=== PATIENT | male | born 1990 | race Caucasian/White ===

== ENCOUNTER 2017-08-21 22:30 | Observation (INO) ==
--- NOTE | 2017-08-21 23:47 | Emergency Department Note ---
Disposition Clinical Impression: Cellulitis of left buttock Disposition: Admitted As Inpatient Condition: Good Forms: ED Satisfaction Letter Time of Disposition: 00:59 Skin/Abscess/FB HPI Chief complaint: ED Skin/Abscess/Foreign Body Stated complaint: had injection in hip and having a reaction Time Seen by Provider: 08/21/17 23:33 Source: patient Mode of arrival: ambulatory Limitations: no limitations Nursing Notes Reviewed: Yes Vital Signs Reviewed: Yes HPI Narrative: 27-year-old male presents emergency room for left buttock pain. States he received a Vivitrol shot and his left buttock 2 weeks ago. He states over the course of 2 weeks as gotten very red and swollen and very tender to touch. He denies any problems going to the bathroom. He denies any fevers or chills. States the pain has gotten worsen and has noticed increased swelling and redness to the skin. No other complaints at this time. Home Medications Medication Instructions Recorded Confirmed Dextroamphetamine/Amphetamine 30 mg PO BID 08/05/15 08/05/15 [Adderall 30 mg Tablet] Previous Rx's Medication Instructions Recorded Cyclobenzaprine [Flexeril] 10 mg PO TID #30 tablet 08/05/15 Ibuprofen [Motrin] 800 mg PO Q8HR #30 tablet 08/05/15 Allergies Allergy/AdvReac Type Severity Reaction Status Date / Time No Known Allergies Allergy Verified 08/05/15 17:05 All systems ED: reviewed and negative except as stated. Constitutional: Reports: as per HPI, chills Eyes: Reports: as per HPI ENT ED: Reports: as per HPI Cardiovascular: Reports: as per HPI Respiratory: Reports: as per HPI Gastrointestinal: Reports: as per HPI Genitourinary: Reports: as per HPI Musculoskeletal: Reports: as per HPI Integumentary: Reports: other (Left buttock pain and redness) Neurological: Reports: as per HPI Psychiatric: Reports: as per HPI Endocrine: Reports: as per HPI Hematological/Lymphatic: Reports: as per HPI Allergic/Immunologic: Reports: as per HPI Past Medical History - Past Medical History Medical history: Reports: no medical history Psychiatric history: Reports: ADHD - Social History Smoking Status: Never smoker Smokeless Tobacco Status: No Alcohol use: Reports: occasionally Drug use: Reports: none Physical Exam - General Limitations: no limitations General appearance: alert, in no apparent distress - Head Head exam: atraumatic, normocephalic - Eye Eye exam: Present: normal appearance - ENT ENT exam: normal exam - Neck Neck exam: Present: normal inspection - Chest Chest inspection: Present: normal inspection - Respiratory Respiratory exam: Present: normal lung sounds bilaterally. Absent: respiratory distress, accessory muscle use - Cardiovascular Cardiovascular exam: Present: regular rate, normal rhythm - Abdominal Exam Abdominal exam: Present: soft, Non-Tender, normal bowel sounds - Extremities Exam Extremities exam: Present: normal inspection - Back Exam Back exam: Present: normal inspection - Neurological Exam Neurological exam: Present: alert, oriented X3 - Psychiatric Psychiatric exam: Present: normal affect, normal mood - Skin Skin exam: Present: warm, dry, intact, other (Patient has a 5" x 3" area of significant induration involving the left buttocks. There is no area of fluctuance. It does not extend down into the rectal area) Course - Consultations Consultation #1: with dr gimenez with gen surg see in consult Vital Signs Temperature 97.9 F 08/21/17 22:31 Pulse Rate 81 08/21/17 22:31 Respiratory Rate 16 08/21/17 22:31 Blood Pressure 153/85 08/21/17 22:31 O2 Sat by Pulse Oximetry 97 08/21/17 22:31 Temperature 97.9 F 08/21/17 22:31 Pulse Rate 81 08/21/17 22:31 Respiratory Rate 16 08/21/17 22:31 Blood Pressure 153/85 08/21/17 22:31 O2 Sat by Pulse Oximetry 97 08/21/17 22:31 Oxygen Delivery Oxygen Delivery Room Air Skin/Abscess/Foreign Body - MDM Narrative Medical decision making narrative: I feel based on the size of the induration I feel the patient needs to be admitted for IV antibiotics. consulted [facility] gen surg dr gimenez admit - Medical Records Medical records reviewed: Yes I reviewed the patient's medical records. - Lab Data Lab results reviewed: Yes I reviewed the patient's lab results. Result diagrams: 08/21/17 23:59 Lab Results 08/21/17 Range/Units 23:59 WBC 6.9 (4.3-11.1) K/mcL RBC 4.66 (4.19-5.50) M/mcL Hgb 14.0 (12.9-16.9) g/dL Hct 40.1 (37.5-50.1) % MCV 86.1 (83.0-100.0) fL MCH 30.0 (28.0-33.3) pg MCHC 34.9 (31.6-35.5) g/dL RDW 12.7 (11.5-14.5) % Plt Count 283 (140-400) K/mcL MPV 10.0 (9.4-12.4) fL Immature Gran % 0.1 (0-4) % Seg Neutrophils % 53.4 % Lymphocytes % 32.2 % Monocytes % 9.9 % Eosinophils % 3.8 % Basophils % 0.6 % Neutrophils # 3.7 (1.6-8.9) K/mcL Lymphocytes # 2.2 (0.6-4.6) K/mcL Monocytes # 0.7 (0.0-1.3) K/mcL Eosinophils # 0.3 (0.0-0.6) K/mcL Basophils # 0.0 (0.0-0.2) K/mcL - Radiology Data Radiology results reviewed: Yes I reviewed the patient's radiology results.
[2017-08-22 00:51] LABS: Basophils % 0.6 %; Eosinophils # 0.3 K/mcL (0.0-0.6); Eosinophils % 3.8 %; Hematocrit 40.1 % (37.5-50.1); Immature Granulocytes % 0.1 % (0-4); Lymphocytes # 2.2 K/mcL (0.6-4.6); Lymphocytes % 32.2 %; Mean Corpuscular HGB Conc 34.9 g/dL (31.6-35.5); Mean Corpuscular Volume 86.1 fL (83.0-100.0); Monocytes # 0.7 K/mcL (0.0-1.3); Monocytes % 9.9 %; Neutrophils # 3.7 K/mcL (1.6-8.9); Platelet Count 283 K/mcL (140-400); Red Blood Count 4.66 M/mcL (4.19-5.50); Red Cell Distribution Width 12.7 % (11.5-14.5); Segmented Neutrophils % 53.4 %
[2017-08-22 01:20] LABS: BUN/Creatinine Ratio 12 (6-26); Blood Urea Nitrogen 17 mg/dL (6-20); Calcium 9.7 mg/dL (8.6-10.3); Carbon Dioxide 22 mEq/L (23-29); Chloride 105 mEq/L (98-107); Glucose 87 mg/dL (70-105); Osmolality,Calculated 287 (280-300); Potassium 3.8 mEq/L (3.5-5.1); Sodium 138 mEq/L (136-145); eGFR For African Americans > 60 (> 60); eGFR For Non-African Americans > 60 (> 60)
[2017-08-22] MEDS ORDERED: Acetaminophen 325 MG TABLET PO PRN (01:38)
[2017-08-22] MEDS ORDERED: Naloxone 0.4 MG/ML INJ IVP PRN (01:38)
--- NOTE | 2017-08-22 01:51 | Internal Med History&Physical ---
<Eh Acharya - Last Filed: 08/22/17 02:58> Date of Encounter: 08/22/17 Time of Encounter: 01:44 Assessment and Plan (1) Cellulitis of left buttock Current visit: Yes Status: Acute Cellulitis of left buttock without evidence of systemic infection, causative organism unknown The patient has significant edema and induration in this area, along with hyperemia CT Pelvis shows: Left gluteal skin thickening with underlying inflammatory fat stranding. Blood cultures pending, Got IV Vancomycin in the ED We will treat the patient with IV Rocephin and Vancomycin Control pain with tylenol, avoid NSAIDs due to RAS (2) Acute kidney injury Current visit: Yes Status: Suspected Elevated serum creatinine with normal GFR, without prior labs to compare The patient admits to frequent use of high dose NSAIDs It is possible that he is experiencing RAS in this setting We will hydrate the patient, avoid nephrotoxic agents and repeat BMP in the morning (3) DVT prophylaxis Current visit: Yes Status: Acute Patient is ambulatory, should walk several times a day as possible. Internal Medicine - H&P: HPI Chief complaint: Left buttock abscess Admitted From: Emergency Dept Plans for Post Hospital Care: Home History of present illness: Mr. Mcmahan is a 27 year old male with history of opioid abuse s/p vivitrol shot , chronic joint pain who presents to the ED with left buttock lesion following vivitrol shot two weeks ago. He says that he had the show and noticed an immediate soreness, redness, and hardening of the deeper tissue, however he noticed significantly worsening symptoms about 4 days ago. He said that the area became increasingly red and painful over the past 4 days, and started to become very warm to the touch. He rates the pain at 6/10, and says that it is getting worse. The pain does not radiate. He does take 800mg Ibuprofen daily for chronic joint pain which he says has been minimally effective at controlling pain. He denies fever, chills, sweats, n/v. He has had no GI/ symptoms. He has no other acute complaints. While the patient says that he has used opioid pain medication, he denies use of IV drugs. He has not had alcohol for 28 days, and has not used narcotic pain medication in over one month. Past Med Surg Social Fam HX - Past Medical History Medical history: no medical history Psychiatric history: ADHD - Social History Smoking Status: Never smoker Smokeless Tobacco Status: No Alcohol use: occasionally Drug use: none Internal Medicine - H&P: Meds Atomoxetine [Strattera] 40 mg PO DAILY 08/22/17 [History] Ibuprofen [Motrin] 800 mg PO Q8HR PRN 08/22/17 [History] 3 Allergy/AdvReac Type Severity Reaction Status Date / Time No Known Allergies Allergy Verified 08/05/15 17:05 All Systems PM: A 10-system review of systems was performed and is negative for pertinent findings except as documented above in the HPI. Review of systems: Constitutional: Denies fevers, chills, weight loss, generalized fatigue Head/Neck: Denies neck stiffness. Admits to mild headache which began today. EENT: Denies vision changes/blurriness, rhinorrhea, congestion, sore throat CVS: Denies chest pain, palpitations, THAO, orthopnea, edema, PND Pulm: Denies SOB, cough, sputum, hemoptysis, wheezing GI: Denies abdominal pain, nausea, vomiting, diarrhea, constipation, melena, hematemasis : Denies dysuria, increased frequency, urgency, hematuria Heme: Denies ease of bleeding or bruising Skin: Admits to resident, hardened, painful scan on the left buttock Neuro: Denies paresthesias, focal deficits, ataxia - Constitutional Vitals: Temp Pulse Resp BP Pulse Ox 97.9 F 64 16 121/84 98 08/21/17 22:31 08/22/17 01:09 08/22/17 01:09 08/22/17 01:09 08/22/17 01:09 Exam: Gen.: Vitals noted. No acute distress. AAOx3 HEENT: Normocephalic, atraumatic Neck: Supple. No adenopathy. Cardiac: RRR, no murmur, +S1/S2 Pulmonary: CTA bilaterally, no wheezes, rales or rhonchi, equal chest expansion Abdomen: soft, nontender, BS noted, no guarding Back: Nontender throughout. Extremities: no BLE edema, nontender calf, no cyanosis or clubbing Skin: Baseball sized area of induration on left upper buttock involving the gluteal cleft without fluctuation, and with some significant warmth in comparison to peripheral skin Neuro: A&Ox3, moves all extremities, no focal deficits Psych: Appropriate mood and behavior Internal Med - H&P Results - Labs CBC & Chem 7: 08/21/17 23:59 08/21/17 23:59 <Mitali Jimenez - Last Filed: 08/22/17 06:40> Date of Encounter: 08/22/17 Internal Medicine - H&P: HPI History of present illness: Mr. Mcmahan is a 27 year old male All Systems PM: A 10-system review of systems was performed and is negative for pertinent findings except as documented above in the HPI. - Constitutional Vitals: Temp Pulse Resp BP Pulse Ox 98.3 F 80 18 122/67 92 08/22/17 03:23 08/22/17 03:23 08/22/17 03:23 08/22/17 03:23 08/22/17 03:23 Internal Med - H&P Results - Labs CBC & Chem 7: 08/21/17 23:59 08/21/17 23:59 - Attending Attestation I have seen and examined pt independently. I have discussed with Resident physician Dr Acharya regarding the management plan. Agree with the documentation.
[2017-08-22] MEDS: 0.9 % Sodium Chloride 1,000 ML IVC SCH ×2 (02:26→11:23)
[2017-08-22] MEDS ORDERED: Vancomycin 1,750 MG in 0.9 % Sodium Chloride 250 ML IVPB SCH (03:00)
[2017-08-22] MEDS ORDERED: *HR* LORazepam 2 MG/ML VIAL IVP PRN ×3 (06:41)
--- NOTE | 2017-08-22 08:24 | General Surgery Consult Note ---
<Palma Morales Tri - Last Filed: 08/22/17 08:22> Date of Encounter: 08/22/17 Time of Encounter: 07:45 Assessment and Plan (1) Cellulitis of left buttock Current Visit: Yes Status: Acute IV antibiotics- ceftriaxone, vancomycin Supportive care Continue to follow and assess progress May require I&D if development of fluctuance/abscess Continue regular diet History of Present Illness Consult date: 08/22/17 Requesting physician: Quinton Ni History of present illness: Mr. Mcmahan is a 27 year old male with a history of opioid use who states that he has responded very well to vivitrol injections. He reports that he had and injection approxiately 2 weeks ago in his left buttock. He states that he noticed a knot around the injection site almost immediately. He states that his symptoms have progressed over the past week. He now has widespread tenderness to the injection site. He also reports increasing hardness to the area with associated warmth. He has never experienced anything like this in the past. He denies any fevers/chills. He denies any nausea/vomiting. He reported to the ED for evaluation of his symptoms and a CT of the pelvis was complete. The CT shows evidence of a phlegmon to the left buttock. We have been asked to see and evaluate the patient for further recommendations. Past Med Surg Social Fam HX - Past Medical History Source: patient Medical history: no medical history, other (Opioid abuse and alcohol abuse) Psychiatric history: ADHD - Social History Smoking Status: Never smoker Smokeless Tobacco Status: No Alcohol use: occasionally Drug use: none (Hx of opiate use- currently treated with vivitrol injections) Current living situation: Home - Independent Activity Level: Independent ambulation - Family History Father Living Status: Still Living Hx Family Cardiac Disorders: Yes (HTN) Mother Living Status: Still Living Medications and Allergies Atomoxetine [Strattera] 40 mg PO DAILY 08/22/17 [History] Ibuprofen [Motrin] 800 mg PO Q8HR PRN 08/22/17 [History] hydrOXYzine HCl [Hydroxyzine HCl] 25 mg PO Q8H PRN 08/22/17 [History] traZODone [TraZODone] 50 mg PO HS PRN 08/22/17 [History] 3 Allergy/AdvReac Type Severity Reaction Status Date / Time No Known Allergies Allergy Verified 08/05/15 17:05 Review of Systems All systems PM: reviewed and no additional remarkable complaints except as stated (in the HPI) All systems PM: A 10-system review of systems was performed and is negative for pertinent findings except as documented above in the HPI. General Surgery Exam Initial Vital Signs Temp Pulse Resp BP Pulse Ox 97.9 F 81 16 153/85 97 08/21/17 22:31 08/21/17 22:31 08/21/17 22:31 08/21/17 22:31 08/21/17 22:31 - General physical appearance well developed, well nourished, no distress - Eyes PERRL, normal ocular movement - ENT normal mucosa, atraumatic, normocephalic - Neck trachea midline - Respiratory normal respiratory effort, clear to auscultation - Cardiovascular Cardiovascular exam: Present: RRR - Abdomen Abdomen general surgery: Present: bowel sounds present, soft, non tender - Integumentary Integumentary general surgery: Present: warm and dry, other (left buttock with induration noted, mild erythema. No fluctuance noted at this time. Tender to examination) - Neurologic Present: CN 2-12 grossly intact - Musculoskeletal Present: normal gait, normal posture - Psychiatric Psychiatric general surgery: Present: appropriate, oriented to person, oriented to place, oriented to time, speech is normal, memory intact Exam Initial Vital Signs Temp Pulse Resp BP Pulse Ox 97.9 F 81 16 153/85 97 08/21/17 22:31 08/21/17 22:31 08/21/17 22:31 08/21/17 22:31 08/21/17 22:31 Results - Labs 08/21/17 23:59 08/21/17 23:59 Abnormal lab results Carbon Dioxide 22 mEq/L (23-29) L 08/21/17 23:59 Creatinine 1.37 mg/dL (0.70-1.30) H 08/21/17 23:59 All other labs normal. - Imaging Additional studies: Pelvis CT 08/22/17 00:02 IMPRESSION: Left gluteal skin thickening with underlying inflammatory fat stranding. No rim enhancing fluid collection, however there are numerous nodular/tubular fluid attenuation areas suspicious for phlegmon/tiny fluid collections. Evaluation with ultrasound may prove helpful to evaluate for an actual drainable fluid collection. D/ / Yong Patterson / Yong Patterson Interpreting Provider: Yong Patterson Consult Discharge Plan - Plan Referrals: Sho Bills MD [Partnered Physician] - NONE,PCP [Primary Care Provider] - - Attending Attestation For this encounter, I have reviewed the CUSTOMER QUALITY ENGINEER or PA documentation, treatment plan, and medical decision making; and I have had face to face time with this patient. <Rizwan Magaña M - Last Filed: 08/22/17 15:12> Date of Encounter: 08/22/17 Review of Systems All systems PM: A 10-system review of systems was performed and is negative for pertinent findings except as documented above in the HPI. General Surgery Exam Initial Vital Signs Temp Pulse Resp BP Pulse Ox 97.9 F 81 16 153/85 97 08/21/17 22:31 08/21/17 22:31 08/21/17 22:31 08/21/17 22:31 08/21/17 22:31 Exam Initial Vital Signs Temp Pulse Resp BP Pulse Ox 97.9 F 81 16 153/85 97 08/21/17 22:31 08/21/17 22:31 08/21/17 22:31 08/21/17 22:31 08/21/17 22:31 Results - Labs 08/21/17 23:59 08/21/17 23:59 Abnormal lab results Carbon Dioxide 22 mEq/L (23-29) L 08/21/17 23:59 Creatinine 1.37 mg/dL (0.70-1.30) H 08/21/17 23:59 All other labs normal. - Attending Attestation I reviewed the above assessment and evaluation and agree with the above plan. Patient has some induration on the left buttock region but no fluctuance noted on examination. Normal white count. It is possible that an abscess may form however I agree with antibiotics at this time. CT scan also shows more than induration versus phlegmon. Discussed with the patient and he agrees to the above plan.
[2017-08-22] MEDS: cefTRIAXone 1,000 MG in Water for inj. (sterile) 20 ML 10 ML IVPB SCH (09:44)
[2017-08-22] MEDS ORDERED: Melatonin 3 MG TABLET PO PRN (20:24)
[2017-08-23 05:03] LABS: Basophils % 0.6 %; Eosinophils # 0.3 K/mcL (0.0-0.6); Eosinophils % 5.3 %; Immature Granulocytes % 0.2 % (0-4); Lymphocytes # 1.8 K/mcL (0.6-4.6); Lymphocytes % 35.3 %; Mean Corpuscular HGB Conc 33.7 g/dL (31.6-35.5); Mean Corpuscular Hemoglobin 29.9 pg (28.0-33.3); Mean Corpuscular Volume 88.6 fL (83.0-100.0); Mean Platelet Volume 9.4 fL (9.4-12.4); Monocytes # 0.5 K/mcL (0.0-1.3); Monocytes % 10.3 %; Neutrophils # 2.5 K/mcL (1.6-8.9); Platelet Count 206 K/mcL (140-400); Red Blood Count 3.95 M/mcL (4.19-5.50); Red Cell Distribution Width 12.7 % (11.5-14.5); Segmented Neutrophils % 48.3 %
[2017-08-23 05:05] LABS: Hemoglobin 11.8 g/dL (12.9-16.9)
[2017-08-23 07:40] VITALS: BP 130/76
[2017-08-23] MEDS: cefTRIAXone 1,000 MG in Water for inj. (sterile) 20 ML 10 ML IVPB SCH (10:22)
--- NOTE | 2017-08-23 10:32 | Discharge Summary ---
Date of Encounter: 08/23/17 Time of Encounter: 10:30 - Discharge Diagnosis (1) Cellulitis of left buttock Priority: Primary Status: Acute (2) Acute kidney injury Priority: Primary Status: Suspected - Discharge Medications Prescriptions: Sulfamethoxazole/Trimeth DS [Bactrim DS] 1 each PO BID #20 tablet Home Medications: Atomoxetine [Strattera] 40 mg PO DAILY 08/22/17 [History] Ibuprofen [Motrin] 800 mg PO Q8HR PRN 08/22/17 [History] hydrOXYzine HCl [Hydroxyzine HCl] 25 mg PO Q8H PRN 08/22/17 [History] traZODone [TraZODone] 50 mg PO HS PRN 08/22/17 [History] Sulfamethoxazole/Trimeth DS [Bactrim DS] 1 each PO BID #20 tablet 08/23/17 [Rx] Allergies/Adverse Reactions: 3 Allergy/AdvReac Type Severity Reaction Status Date / Time No Known Allergies Allergy Verified 08/05/15 17:05 Date of admission: 08/22/17 06:39 Primary care physician: PCP NONE - Patient Status Disposition: Home, Self-Care Condition: Fair Overall status at discharge: patient is progressing back to baseline - Discharge Instructions Instructions: Sulfamethoxazole/Trimethoprim (By mouth), Cellulitis (DC) Follow Up With: Sho Bills MD [Partnered Physician] - Rizwan Magaña MD [Partnered Physician] - (2 weeks, web request sent.) NONE,PCP [Primary Care Provider] - - Diet and Activity Activity: increase activity as tolerated Diet: regular diet Hospital course: Mr. Mcmahan is a 27 year old male with history of opioid abuse s/p vivitrol shot , chronic joint pain who presented to the ED with left buttock lesion following vivitrol shot two weeks ago. He said that he had the shot and noticed an immediate soreness, redness, and hardening of the deeper tissue, however he noticed significantly worsening symptoms about 4 days prior to admission. He said that the area became increasingly red and painful over the past 4 days, and started to become very warm to the touch. Workup in the ED showed normal labs except for mildly elevated creatinine. He had a CT pelvis which showed a left gluteal skin thickening with underlying inflammatory fat stranding. No enhancing fluid collection, however there are numerous nodular/tubular fluid attenuation areas suspicious for phlegmon/tiny fluid collections. The patient was admitted and put on IV antibiotics broad spectrum. Was seen by surgery who recommended against any surgical intervention. He was eventually discharged on Bactrim for 10 days with follow-up with surgery recommended in 2 weeks. The patient was stable for discharge on 08/23/2017 - Time Spent with Patient Total time spent providing and/or coordinating discharge services: Greater than 30 minutes - Constitutional Vitals: Temp Pulse Resp BP Pulse Ox 98.0 F 56 17 130/76 98 08/23/17 07:36 08/23/17 07:36 08/23/17 07:36 08/23/17 07:36 08/23/17 07:36 Exam: GEN: NAD CVS: RRR. S1, S2, No m/r/g RESP: CTAB ABD: Soft, NT, ND, +BS EXT: No edema. 2+ DP. induration of about 2x2 cm on the left buttock with surrounding erythema. No fluctuance. NEURO: Nonfocal
[2017-08-23 11:50] LABS: BUN/Creatinine Ratio 7 (6-26); Blood Urea Nitrogen 9 mg/dL (6-20); Calcium 9.2 mg/dL (8.6-10.3); Carbon Dioxide 26 mEq/L (23-29); Chloride 108 mEq/L (98-107); Glucose 120 mg/dL (70-105); Osmolality,Calculated 290 (280-300); Potassium 4.5 mEq/L (3.5-5.1); Sodium 140 mEq/L (136-145); eGFR For African Americans > 60 (> 60); eGFR For Non-African Americans > 60 (> 60)
--- NOTE | 2017-08-23 12:12 | General Surgery Progress Note ---
<NidiaScarlett H - Last Filed: 08/23/17 12:10> Date of Encounter: 08/23/17 Time of Encounter: 09:00 - Assessment and Plan (1) Cellulitis of left buttock Status: Acute Patient received IV antibiotics including ceftriaxone and vancomycin during hospitalization. No defined area of fluid collection on imaging. -Patient improving clinically -Patient stable for discharge from surgical standpoint today. -Discharge with 10 days oral flagyl and follow-up in [address] Magaña. -Patient given strong return precautions if he develops fevers or increasing pain or swelling in his gluteal region. (2) Acute kidney injury Status: Suspected Management per primary team. Subjective Patient reports: no new complaints, feels better, pain is less, tolerating liquids well, afebrile Objective Vital Signs - Last 8 Hours Temp Pulse Resp BP Pulse Ox 08/23/17 07:36 98.0 F 56 17 130/76 98 Intake and Output 08/22/17 08/23/17 08/23/17 23:59 07:59 15:59 Intake Total 1000 / 1000 270 / 270 Output Total 0 / 0 Balance 1000 / 1000 270 / 270 Intake: IV Fluids 1000 / 1000 0.9 % Sodium Chloride 1,000 ML 1000 / 1000 @ 100 mls/hr IVC .Q10H [facility] Rx#: [id number] Oral 270 / 270 Output: Urine 0 / 0 Other: Meal Breakfast Percent of Meal Consumed 100% Weight 115.893 kg Patient Weight 08/23/17 23:59 Weight 115.893 kg - General physical appearance well developed, well nourished, no distress - ENT normal pinna - Neck Neck exam: no masses, trachea midline - Respiratory normal expansion, normal respiratory effort, clear to auscultation - Cardiovascular Cardiovascular exam: Present: RRR, no murmurs/rubs/gallops - Abdomen Abdomen: Present: bowel sounds present, soft, non tender - Integumentary other (Patient with approximately 3 cm x 1 cm oblong area of erythema and induration on his right gluteus. No fluctuance.) - Labs 08/23/17 04:54 08/23/17 10:54 Diabetes panel 08/23/17 Range/Units 10:54 Sodium 140 (136-145) mEq/L Potassium 4.5 (3.5-5.1) mEq/L Chloride 108 H (98-107) mEq/L Carbon Dioxide 26 (23-29) mEq/L BUN 9 (6-20) mg/dL Creatinine 1.32 H (0.70-1.30) mg/dL Glucose 120 H (70-105) mg/dL Calcium 9.2 (8.6-10.3) mg/dL Calcium panel 08/23/17 Range/Units 10:54 Calcium 9.2 (8.6-10.3) mg/dL Pituitary panel 08/23/17 Range/Units 10:54 Sodium 140 (136-145) mEq/L Potassium 4.5 (3.5-5.1) mEq/L Chloride 108 H (98-107) mEq/L Carbon Dioxide 26 (23-29) mEq/L BUN 9 (6-20) mg/dL Creatinine 1.32 H (0.70-1.30) mg/dL Glucose 120 H (70-105) mg/dL Calcium 9.2 (8.6-10.3) mg/dL Adrenal panel 08/23/17 Range/Units 10:54 Sodium 140 (136-145) mEq/L Potassium 4.5 (3.5-5.1) mEq/L Chloride 108 H (98-107) mEq/L Carbon Dioxide 26 (23-29) mEq/L BUN 9 (6-20) mg/dL Creatinine 1.32 H (0.70-1.30) mg/dL Glucose 120 H (70-105) mg/dL Calcium 9.2 (8.6-10.3) mg/dL Consult Discharge Plan - Plan Instructions: Sulfamethoxazole/Trimethoprim (By mouth), Cellulitis (DC) Referrals: Sho Bills MD [Partnered Physician] - Rizwan Magaña MD [Partnered Physician] - (2 weeks, web request sent.) NONE,PCP [Primary Care Provider] - Prescriptions: Sulfamethoxazole/Trimeth DS [Bactrim DS] 1 each PO BID #20 tablet <Atul Pearson - Last Filed: 08/23/17 19:10> Date of Encounter: 08/23/17 Objective Intake and Output 08/23/17 08/23/17 08/23/17 07:59 15:59 23:59 Intake Total 1000 / 1000 270 / 270 Output Total 0 / 0 Balance 1000 / 1000 270 / 270 Intake: IV Fluids 1000 / 1000 0.9 % Sodium Chloride 1,000 ML 1000 / 1000 @ 100 mls/hr IVC .Q10H [facility] Rx#: [id number] Oral 270 / 270 Output: Urine 0 / 0 Other: Meal Breakfast Percent of Meal Consumed 100% Weight 115.893 kg Patient Weight 08/23/17 23:59 Weight 115.893 kg - Labs 08/23/17 04:54 08/23/17 10:54 Diabetes panel 08/23/17 Range/Units 10:54 Sodium 140 (136-145) mEq/L Potassium 4.5 (3.5-5.1) mEq/L Chloride 108 H (98-107) mEq/L Carbon Dioxide 26 (23-29) mEq/L BUN 9 (6-20) mg/dL Creatinine 1.32 H (0.70-1.30) mg/dL Glucose 120 H (70-105) mg/dL Calcium 9.2 (8.6-10.3) mg/dL Calcium panel 08/23/17 Range/Units 10:54 Calcium 9.2 (8.6-10.3) mg/dL Pituitary panel 08/23/17 Range/Units 10:54 Sodium 140 (136-145) mEq/L Potassium 4.5 (3.5-5.1) mEq/L Chloride 108 H (98-107) mEq/L Carbon Dioxide 26 (23-29) mEq/L BUN 9 (6-20) mg/dL Creatinine 1.32 H (0.70-1.30) mg/dL Glucose 120 H (70-105) mg/dL Calcium 9.2 (8.6-10.3) mg/dL Adrenal panel 08/23/17 Range/Units 10:54 Sodium 140 (136-145) mEq/L Potassium 4.5 (3.5-5.1) mEq/L Chloride 108 H (98-107) mEq/L Carbon Dioxide 26 (23-29) mEq/L BUN 9 (6-20) mg/dL Creatinine 1.32 H (0.70-1.30) mg/dL Glucose 120 H (70-105) mg/dL Calcium 9.2 (8.6-10.3) mg/dL - Attending Attestation I have personally seen and examined the patient. I have reviewed pertinent labs , imaging, progress notes, including this one. I agree with the above assessment and plan and wish to include the following... 27M with R gluteal cellulitis; resolving with IV abx; transition to PO abx, okay for d/c from surgery standpoint; discussed with patient about the possibility of abscess coming later; instructed to return for surgical evaluation should that happen
[2017-08-23] MEDS ORDERED: Aminoglycoside Consult 1 EACH MC ONE (12:28)
== END 2017-08-23 12:29 | disposition home or self-care (01) ==
LOC: 2ANU 22:30 → EMEROO 22:30 → 2ANU 08-22 01:40
PROVIDERS: ADMIT Internal Medicine; ATTEND Registered Nurse